=== PATIENT | female | born 1935 | race African-American/Black ===

== ENCOUNTER 2019-04-22 15:02 | Emergency (ER) | payer MEDICARE, MEDICAID ==
[~2019-04-22] VITALS: Ht 167.6 cm; Wt 67.1 kg
[2019-04-22 15:10] VITALS: BP 175/91
--- NOTE | 2019-04-22 15:10 | NUR ---
ED Nurse Note: Pt BIBA from home d/t generalized weakness. No complaint of pain. Patient has right sided weakness d/t previous stroke. Patient BS upon assessment 129 mg/dL. Patient placed in gown and cardiac rehabilitation specialist. no acute distress at this time. Addendum: 04/22/19 at 1636 by [facility] ED Nurse Note: Pt brought in by ambulance from home d/t generalized weakness. No complaint of pain. Patient has right sided weakness d/t previous stroke. Patient BS upon assessment 129 mg/dL. Patient placed in gown and cardiac rehabilitation specialist. skin intact. rectal temperature 100.6 F at assessment, ERMD notified. no acute distress at this time.
--- NOTE | 2019-04-22 15:15 | NUR ---
ED Nurse Note: ERMD at bedside.
--- NOTE | 2019-04-22 15:19 | Emergency Room Report ---
History of Present Illness General Chief Complaint: Generalized Weakness Source: EMS Present Illness HPI Disclaimer: Please note that this report is being documented using [employer] technology. This can lead to erroneous entry secondary to incorrect interpretation by the dictating instrument. HPI: 83-year-old female with a history of multiple CVAs residual right-sided weakness, CAD, hypertension, hyperlipidemia, diabetes presents for evaluation of weakness, myalgias and altered mental status. According to family and patient she was in her usual state of health when she went to bed last night. This morning she awoke somewhat confused and complaining of myalgias and weakness. She normally ambulates with a walker but was unable to rise under her own power today. Family states she is normally awake and oriented x3 but today is no longer able to recall the date, month or year. She is oriented to place and self. She complains of diffuse myalgias from the back to the upper and lower extremities and across the entire torso. Symptoms started today. She denies cough but notes some shortness of breath. Denies chest pressure, vomiting, diarrhea, dysuria, hematuria. No change in medications recently. Denies drug or alcohol use PMH: Diabetes, hypertension, hyperlipidemia, CVA, CAD PSH: None reported by patient Allergies: None reported Social Hx: Denies alcohol or drug abuse Allergies: Coded Allergies: No Known Allergies (Unverified , 04/22/19) Patient History Last Menstrual Period: na Nursing Documentation-PMH Past Medical History: No History, Except For Hx Hypertension: Yes Hx Cerebrovascular Accident: Yes Review of Systems All Other Systems: negative except mentioned in HPI Physical Exam Vital Signs Date Time Temp Pulse Resp B/P (MAP) Pulse Ox O2 Delivery O2 Flow Rate FiO2 04/22/19 14:57 100.0 119 22 183/99 (127) 99 Room Air General: Awake and alert, no acute distress HEENT: NC/AT. EOMI. anicteric sclera. PERRLA. Dry mucous membranes. Neck: Supple, trachea midline Chest Wall: No tenderness, no deformity Cardiovascular: Tachycardic. S1 and S2 normal. No murmur appreciated Resp: Tachypnea. Normal work of breathing. No cough, wheezing or crackles appreciated Abdomen: Abdomen is soft, nondistended. Nontender Skin: Intact. No abrasions, laceration or rash over the exposed skin MSK: Normal tone and bulk. Moving all extremities. No obvious deformity. Neuro: Awake and alert. Oriented to self and place. Can now recall the season. Mentating appropriately. Moving all extremities. Procedures Critical Care Time Critical Care Time Total critical care time: Approximately 45 minutes Due to a high probability of clinically significant, life threatening deterioration, the patient required the highest level of preparedness to intervene emergently and I personally spent this critical care time directly and personally managing the patient. This critical care time included obtaining a history, examining the patient, pulse oximetry, ordering and reviewing studies , ordering treatments, evaluating response to treatment and updating management plan as needed, frequent reassessment and discussion with other providers as well as arranging for ultimate disposition. This critical to care time was performed to assess and manage the high probability of life-threatening deterioration that could result in multiorgan failure. This critical care time is separate from the separately billable procedures and treating other patients. Medical Decision Making Diagnostic Impression: Primary Impression: Febrile illness Additional Impressions: Troponin level elevated Hypomagnesemia ER Course This is an 83-year-old female presenting for evaluation of myalgias, weakness and altered mental status symptom onset beginning earlier today. Differential includes was not limited to viral syndrome, pneumonia, UTI, sepsis, dehydration , electrolyte abnormality, anemia. We will start broad metabolic, infectious work-up. There is no report of fall or head trauma to indicate CT scan of the head. She is tachycardic and borderline febrile. Will obtain a rectal temperature as well. Biggest concern is for sepsis at this time. Will send flu swabs as well as blood cultures. IV fluids at 30 cc/kg started. Patient denies history of CHF and no clinical signs of fluid overload. No prior hospital visits available in the EMR to obtain other information. Laboratory Tests Test 04/22/19 15:13 04/22/19 15:31 White Blood Count 7.6 K/UL (4.8-10.8) Red Blood Count 4.87 M/UL (4.20-5.40) Hemoglobin 13.2 G/DL (12.0-16.0) Hematocrit 41.4 % (37.0-47.0) Mean Corpuscular Volume 85 FL (80-99) Mean Corpuscular Hemoglobin 27.1 PG (27.0-31.0) Mean Corpuscular Hemoglobin Concent 31.9 G/DL (32.0-36.0) L Red Cell Distribution Width 12.6 % (11.6-14.8) Platelet Count 267 K/UL (150-450) Mean Platelet Volume 6.9 FL (6.5-10.1) Neutrophils (%) (Auto) 80.8 % (45.0-75.0) H Lymphocytes (%) (Auto) 11.0 % (20.0-45.0) L Monocytes (%) (Auto) 6.3 % (1.0-10.0) Eosinophils (%) (Auto) 0.5 % (0.0-3.0) Basophils (%) (Auto) 1.4 % (0.0-2.0) Sodium Level 139 MMOL/L (136-145) Potassium Level 3.7 MMOL/L (3.5-5.1) Chloride Level 101 MMOL/L (98-107) Carbon Dioxide Level 27 MMOL/L (21-32) Anion Gap 11 mmol/L (5-15) Blood Urea Nitrogen 9 mg/dL (7-18) Creatinine 0.8 MG/DL (0.55-1.30) Estimate Glomerular Filtration Rate mL/min (>60) Glucose Level 142 MG/DL (74-106) H Lactic Acid Level 2.00 mmol/L (0.4-2.0) Calcium Level 8.5 MG/DL (8.5-10.1) Phosphorus Level 2.3 MG/DL (2.5-4.9) L Magnesium Level 1.6 MG/DL (1.8-2.4) L Total Bilirubin 0.3 MG/DL (0.2-1.0) Aspartate Amino Transferase (AST) 21 U/L (15-37) Alanine Aminotransferase (ALT) 18 U/L (12-78) Alkaline Phosphatase 134 U/L (46-116) H Ammonia < 10 umol/L (11-32) L Total Creatine Kinase 105 U/L (26-308) Creatine Kinase MB 0.9 NG/ML (0.0-3.6) Creatine Kinase MB Relative Index 0.8 Troponin I 0.090 ng/mL (0.000-0.056) Total Protein 9.0 G/DL (6.4-8.2) H Albumin 3.7 G/DL (3.4-5.0) Globulin 5.3 g/dL Albumin/Globulin Ratio 0.7 (1.0-2.7) L Urine Color Pale yellow Urine Appearance Clear Urine pH 6 (4.5-8.0) Urine Specific [place] 1.010 (1.005-1.035) Urine Protein 2+ (NEGATIVE) H Urine Glucose (UA) Negative (NEGATIVE) Urine Ketones Negative (NEGATIVE) Urine Blood 1+ (NEGATIVE) H Urine Nitrite Negative (NEGATIVE) Urine Bilirubin Negative (NEGATIVE) Urine Urobilinogen Normal MG/DL (0.0-1.0) Urine Leukocyte Esterase Negative (NEGATIVE) Urine RBC 5-10 /HPF (0 - 2) H Urine WBC 0-2 /HPF (0 - 2) Urine Squamous Epithelial Cells Many /LPF (NONE/OCC) H Urine Bacteria Few /HPF (NONE) Microbiology Date/Time Source Procedure Growth Status 04/22/19 15:13 Nasal Nares - Final Complete 04/22/19 15:13 Nasal Nares - Final Complete EKG Diagnostic Results EKG Time: 15:18 Rate: tachycardiac Rhythm: NSR ST Segments: no acute changes Other Impression Sinus tachycardia, rate 114 bpm. Normal axis, normal intervals, no ST segment changes. Rhythm Strip Diag. Results Rhythm Strip Time: 15:18 EP Interpretation: yes Rate: 110s Rhythm: NSR, no PVC's, no ectopy Chest X-Ray Diagnostic Results Chest X-Ray Diagnostic Results : Chest X-Ray Ordered: Yes # of Views/Limited/Complete: 1 View Indication: Other - weakness Interpretation: no consolidation, no pneumothorax, other - Bilateral haziness but no obvious effusion Impression: No acute disease Electronically Signed by: Electronically signed by Dr. Antonio Marte Reevaluation Time: 16:15 Last Vital Signs Date Time Temp Pulse Resp B/P (MAP) Pulse Ox O2 Delivery O2 Flow Rate FiO2 04/22/19 14:57 100.0 119 22 183/99 (127) 99 Room Air Reevaluation Impression Sepsis reevaluation: I, Dr. Antonio Marte, reevaluate the patient at 1315 Capillary refill: Less than 2 seconds MAP: 114 Heart rate: 105 Respiratory rate: 27 No signs of fluid overload Patient's labs showed no white count but a left shift of 80%. Magnesium and phosphorus are both low, alkaline phosphatase slightly elevated. Troponin returned positive at 0.090. EKG is nonischemic. Aspirin ordered. Lactate is 2.0. The patient is receiving her 30 cc/kg bolus currently. Rectal temperature was 100.6 degrees. She was given Tylenol. Influenza swabs have returned negative. Vancomycin and Zosyn are ordered. Magnesium will be repleted. She will require admission and will be transferred to a [place] facility per her insurance plan. [facility] Condition: Serious Atnonio Marte MD Apr 22, 2019 15:19
[2019-04-22 15:41] LABS: BASOPHILS % (AUTO) 1.4 % (0.0-2.0); EOSINOPHILS % (AUTO) 0.5 % (0.0-3.0); HEMATOCRIT 41.4 % (37.0-47.0); HEMOGLOBIN 13.2 G/DL (12.0-16.0); MEAN CORPUSCULAR VOLUME 85 FL (80-99); MONOCYTES % (AUTO) 6.3 % (1.0-10.0); NEUTROPHILS % (AUTO) 80.8 % (45.0-75.0); PLATELET COUNT 267 K/UL (150-450); RED BLOOD COUNT 4.87 M/UL (4.20-5.40); RED CELL DISTRIBUTION WIDTH 12.6 % (11.6-14.8); WHITE BLOOD COUNT 7.6 K/UL (4.8-10.8)
--- NOTE | 2019-04-22 15:45 | NUR ---
ED Nurse Note: Family (daughter) at bedside.
[2019-04-22 15:55] LABS: ANION GAP 11 mmol/L (5-15); BLOOD UREA NITROGEN 9 mg/dL (7-18); CALCIUM 8.5 MG/DL (8.5-10.1); CARBON DIOXIDE 27 MMOL/L (21-32); CHLORIDE 101 MMOL/L (98-107); CREATININE 0.8 MG/DL (0.55-1.30); POTASSIUM 3.7 MMOL/L (3.5-5.1); SODIUM 139 MMOL/L (136-145)
[2019-04-22 15:56] LABS: AMMONIA < 10 umol/L (11-32)
[2019-04-22] MEDS ORDERED: Acetaminophen 500mg (ES) tab ORAL ONE (16:00)
[2019-04-22 16:06] LABS: APPEARANCE,URINE CLEAR; BILIRUBIN, URINE NEGATIVE (NEGATIVE); COLOR,URINE PALE YELLOW; GLUCOSE, URINE (UA) NEGATIVE (NEGATIVE); KETONES,URINE NEGATIVE (NEGATIVE); LEUKOCYTE ESTERASE ,URINE NEGATIVE (NEGATIVE); NITRITE,URINE NEGATIVE (NEGATIVE); PH,URINE 6 (4.5-8.0); PROTEIN,URINE 2+ (NEGATIVE); UROBILINOGEN,URINE NORMAL MG/DL (0.0-1.0)
[2019-04-22 16:06] LABS: ALANINE AMINOTRANSFERASE 18 U/L (12-78); ALBUMIN 3.7 G/DL (3.4-5.0); ALBUMIN/GLOBULIN RATIO 0.7 (1.0-2.7); ALKALINE PHOSPHATASE 134 U/L (46-116); ASPARTATE AMINO TRANSFERASE 21 U/L (15-37); BILIRUBIN,TOTAL 0.3 MG/DL (0.2-1.0); CKMB 0.9 NG/ML (0.0-3.6); CREATINE KINASE 105 U/L (26-308); PHOSPHORUS 2.3 MG/DL (2.5-4.9)
[2019-04-22] MEDS ORDERED: Aspirin Baby 81mg ORAL ONE (16:15)
--- NOTE | 2019-04-22 16:20 | Diagnostic Imaging Report ---
Indication: Shortness of breath Technique: One view of the chest Comparison: none Findings: The heart is enlarged. There is equivocal mild interstitial congestion. No focal airspace consolidation. No definite effusions Impression: Mainly. Equivocal mild interstitial congestion-correlate with clinical findings
[2019-04-22] MEDS ORDERED: EPSOM SALTS TOPIC ONE (16:45)
[2019-04-22] MEDS ORDERED: Vancomycin 1.5 GM in NS 275 ML IVPB ONE (16:45)
[2019-04-22] MEDS ORDERED: Piperacillin/Tazobactam 3.375 GM in NS 110 ML IVPB ONE (16:45)
[2019-04-22 17:10] VITALS: BP 166/85
--- NOTE | 2019-04-22 18:05 | NUR ---
ED Nurse Note: Rechecked temperature orally, 98.7 F
--- NOTE | 2019-04-22 18:12 | NUR ---
ED Nurse Note: lactic reflux sent to lab.
--- NOTE | 2019-04-22 18:17 | NUR ---
ED Nurse Note: Contacted [facility] spoke to Ar and was informed nurse to take patient not available and to call back in 30 mins. Informed charge nurse.
--- NOTE | 2019-04-22 19:12 | NUR ---
ED Nurse Note: Report given to JOVANY Spaulding at Telemetry in [place].
--- NOTE | 2019-04-22 19:19 | NUR ---
ED Nurse Note: Patient cleared for transfer per ERMD via [facility]. Report given to Cordell Burciaga RN from [facility]. Patient transferred to [facility], pt left in stable condition.
[2019-04-22 19:21] VITALS: BP 169/90
--- NOTE | 2019-04-23 16:22 | Cardiology Report ---
APPROVED REPORT EKG Measurement Heart [id number] Sinus tachycardia with premature atrial complexes Otherwise normal ECG
== END 2019-04-22 18:45 | disposition short-term general hospital (02) ==
LOC: EDBD 15:02 → EMR 15:35
DX: R50.9 Fever, unspecified (principal); R79.89 Other specified abnormal findings of blood chemistry; E83.42 Hypomagnesemia; I10 Essential (primary) hypertension; E78.5 Hyperlipidemia, unspecified; I11.9 Hypertensive heart disease without heart failure; I25.10 Atherosclerotic heart disease of native coronary artery without angina pectoris; G81.91 Hemiplegia, unspecified affecting right dominant side; R00.0 Tachycardia, unspecified
CPT/HCPCS: 36415; 71045; 80053; 81003; 82140; 82550; 82553; 83605; 83735; 84100; 84484; 85025; 86710; 87040; 93005; 96361; 96365; 96367; 96368; 99291; J2543; J3370; J7030; J7050